=== PATIENT | male | born 1990 | race Hispanic/Latino ===

== ENCOUNTER 2020-10-07 10:52 | Outpatient (CLI) | payer OTHER ==
--- NOTE | 2020-10-07 11:19 | RAD ---
EXAM: Two views chest PROVIDED CLINICAL HISTORY: Chest and rib pain COMPARISON: None FINDINGS: Cardiac silhouette and pulmonary vasculature are within normal limits. Calcified granuloma is seen a t the lateral right lung base. Lungs are otherwise clear. The osseous structures have a normal appearance. IMPRESSION: No acute cardiopulmonary process.
== END 2020-10-07 10:53 | disposition home or self-care (01) ==
LOC: BURRAD 10:52
PROVIDERS: ATTEND Nurse Practitioner Family
DX: M54.9 Dorsalgia, unspecified (principal); R07.81 Pleurodynia
CPT/HCPCS: 71046